=== PATIENT | male | born 1980 | race Caucasian/White ===

== ENCOUNTER → 2016-10-08 | Outpatient (CLI) | payer OTHER ==
--- NOTE | 2016-10-08 19:44 | CT ---
EXAMINATION TYPE: CT sinus wo con DATE OF EXAM: 10/08/2016 COMPARISON: NONE HISTORY: GAGNON and sinus drainage. CT DLP: 667 mGycm. Automated Exposure Control for Dose Reduction was Utilized. TECHNIQUE: CT scan of the sinuses is performed without contrast, axial images are obtained, coronal r eformatted images are also reviewed. FINDINGS: The paranasal sinuses including the frontal, ethmoid, sphenoid, and maxillary sinuses bila terally are well-aerated with mild mucosal thickening involving ethmoid air cells and maxillary sinus es. No air-fluid levels. The ostiomeatal complex is patent bilaterally on the coronal images. Visualized portion of mastoid air cells show no abnormal opacification. The globes are intact bilate rally. There is a nasal septal deviation. Frontal sinus somewhat hypoplastic. IMPRESSION: 1. Mild chronic ethmoidal and maxillary sinusitis. 2. Nasal septal deviation.
== END | disposition home or self-care (01) ==
LOC: RADCTMAIN 18:49
PROVIDERS: ATTEND Otolaryngology
DX: J32.0 Chronic maxillary sinusitis (principal); J32.2 Chronic ethmoidal sinusitis; J34.2 Deviated nasal septum
CPT/HCPCS: 70486

== ENCOUNTER → 2017-09-25 | Outpatient (CLI) | payer OTHER ==
--- NOTE | 2017-09-25 10:54 | XR ---
EXAM TYPE: LUMBAR SPINE X RAY SERIES COMPARISON: NONE HISTORY: Pain TECHNIQUE: 4 views are submitted. FINDINGS: Alignment is anatomic. The pedicles are intact. The transverse processes are intact. There is no s pondylolisthesis. Spina bifida occulta at the lumbosacral junction. Degenerative changes L5-S1. Facet arthropathy L4-5 and L5-S1. IMPRESSION: 1. Facet arthropathy lower lumbar spine with degenerative disc disease L5-S1. Correlate with MRI as c linically warranted.
== END | disposition home or self-care (01) ==
LOC: RADXRMAIN 10:28
PROVIDERS: ATTEND Internal Medicine Geriatric Medicine
DX: M48.8X6 Other specified spondylopathies, lumbar region (principal); M51.37 Other intervertebral disc degeneration, lumbosacral region
CPT/HCPCS: 72100